=== PATIENT | female | born 1960 | race Caucasian/White ===

== ENCOUNTER 2022-09-06 21:21 | Inpatient (IN) | payer OTHER ==
[2022-09-06 22:54] LABS: Basophils % (A) 0 %; Eosinophils % (A) 0 %; HCT 46.8 % (34.0-46.0); HGB 15.7 gm/dL (11.4-16.0); Lymphocytes # (A) 0.6 k/uL (1.0-4.8); Lymphocytes % (A) 5 %; MCH 29.3 pg (25.0-35.0); MCHC 33.4 g/dL (31.0-37.0); MCV 87.5 fL (80.0-100.0); Mean Platelet Volume 8.1; Monocytes # (A) 0.8 k/uL (0-1.0); Monocytes % (A) 6 %; Neutrophils # (A) 11.6 k/uL (1.3-7.7); Neutrophils % (A) 89 %; Platelet Count 258 k/uL (150-450); RBC 5.35 m/uL (3.80-5.40)
[2022-09-06 23:08] LABS: ALT 25 U/L (4-34); AST 38 U/L (14-36); African American GFR (CKD) 47 (>60 ml/min/1.73 sqM); Albumin 4.3 g/dL (3.5-5.0); Alkaline Phosphatase 105 U/L (38-126); Anion Gap 12 mmol/L; Blood Urea Nitrogen 26 mg/dL (7-17); C Reactive Protein 3.5 mg/dL (<1.0); Calcium 8.6 mg/dL (8.4-10.2); Carbon Dioxide 28 mmol/L (22-30); Chloride 95 mmol/L (98-107); Glucose 203 mg/dL (74-99); Non-African American GFR(CKD) 41 (>60 ml/min/1.73 sqM); Sodium 135 mmol/L (137-145); Total Protein 7.9 g/dL (6.3-8.2)
--- NOTE | 2022-09-06 23:25 | ED ---
General Adult HPI - General Chief complaint: Abdominal Pain Stated complaint: Palpitations Time Seen by Provider: 09/06/22 21:44 Source: EMS Mode of arrival: EMS Limitations: no limitations - History of Present Illness Initial comments: This patient is 62-year-old woman who arrives here as a transfer from [facility]. The patient's had gone to the hospital there to have evaluation of periumbilical abdominal pain that she states have been going on for a couple of days. The patient on arrival also was feeling a little short of breath. The transfer paperwork notes that the patient was diagnosed with diverticulitis and with hypertensive crisis. She had pressures documented up to 267/167, shortly after her arrival there. The patient reportedly arrived around 3:30 PM and had highs blood pressure at 4:15 PM. The patient had been administered 10 mg of labetalol IV, 40 mg Lasix IV, and had been placed on the Nicardipine drip. Patient was also given dose of IV Zosyn and morphine for analgesia. Patient's blood pressure showed improvement and the nicardipine had been stopped. Labs from the other hospital revealed be BNP of 4840, blood cell count 13,000 950 creatinine 1.4. D-dimer 1.06 remainder of labs largely unremarkable. The ECG prior to transfer showed sinus tachycardia at 102 with evidence of LVH. Computed tomography scan of the abdomen shows "acute uncomplicated colonic diverticulitis and gallbladder wall thickening with cholelithiasis computed tomography scan of the chest showed no evidence of pulmonary embolism. On arrival here, the patient is complaining only of periumbilical abdominal pain. She denies chest pain or dyspnea. Onset/Timin -: days(s) Location: abdomen Radiation: non-radiation Quality: aching Consistency: constant Improves with: none Worsens with: movement Associated Symptoms: denies other symptoms Treatments Prior to Arrival: none - Related Data Previous Rx's Medication Instructions Recorded Amoxic-Pot Clav 875-125Mg 1 tab PO Q12HR 7 Days #14 tab 09/09/22 [Augmentin 875-125] Metoprolol Tartrate [Lopressor] 50 mg PO BID 60 Days #120 tab 09/09/22 amLODIPine [Norvasc] 10 mg PO DAILY 60 Days #60 tab 09/09/22 Allergies Allergy/AdvReac Type Severity Reaction Status Date / Time No Known Allergies Allergy Verified 09/07/22 07:33 Review of Systems ROS Statement: Those systems with pertinent positive or pertinent negative responses have been documented in the HPI. ROS Other: All systems not noted in ROS Statement are negative. Constitutional: Denies: fever, chills, weakness Respiratory: Denies: cough, dyspnea Cardiovascular: Denies: chest pain, palpitations, edema Gastrointestinal: Reports: abdominal pain, nausea. Denies: vomiting, diarrhea, constipation, melena, hematochezia Genitourinary: Denies: dysuria, hematuria Musculoskeletal: Denies: back pain Skin: Denies: rash Neurological: Denies: headache, weakness, numbness Past Medical History Past Medical History: Hypertension History of Any Multi-Drug Resistant Organisms: None Reported Past Surgical History: Tubal Ligation Smoking Status: Never smoker Past Alcohol Use History: None Reported Past Drug Use History: None Reported General Exam Limitations: no limitations General appearance: alert, in no apparent distress Head exam: Present: atraumatic, normocephalic Eye exam: Present: normal appearance. Absent: scleral icterus, conjunctival injection ENT exam: Present: normal oropharynx Neck exam: Present: normal inspection Respiratory exam: Present: normal lung sounds bilaterally. Absent: respiratory distress, wheezes, rales, rhonchi, stridor Cardiovascular Exam: Present: regular rate, normal rhythm, normal heart sounds. Absent: systolic murmur, diastolic murmur, rubs, gallop GI/Abdominal exam: Present: soft, tenderness. Absent: distended, guarding, rebound, rigid, mass, pulsatile mass, hernia Extremities exam: Present: normal inspection, normal capillary refill. Absent: pedal edema, calf tenderness Back exam: Present: normal inspection. Absent: CVA tenderness (R), CVA tenderness (L) Neurological exam: Present: alert Skin exam: Present: warm, dry, intact, normal color. Absent: rash Course Vital Signs 09/06/22 09/06/22 21:30 23:15 Temperature 97.8 F Pulse Rate 102 H 100 Respiratory 20 20 Rate Blood Pressure 146/99 153/108 O2 Sat by Pulse 96 96 Oximetry Medical Decision Making - Medical Decision Making This patient is a 62-year-old woman arriving here is transferred from outside hospital where she had gone to have evaluation of abdominal pain. The patient reportedly found to have diverticulitis. She while there also developed hypertensive episode requiring IV medication treatments. The patient states breathing has improved though she remains moderately hypertensive here. Patient will be admitted for further treatment Was pt. sent in by a medical professional or institution (, JEAN PAUL, [employer] BULK DRIVER, urgent care, hospital, or retirement...) When possible be specific @ -Patient transferred here from outside hospital Did you speak to anyone other than the patient for history (EMS, parent, family, police, friend...)? What history was obtained from this source @ -[No] Did you review nursing and triage notes (agree or disagree)? Why? @ -[I reviewed and agree with nursing and triage notes] Were old charts reviewed (outside hosp., previous admission, EMS record, old EKG, old radiological studies, urgent care reports/EKG's, retirement records)? Report findings @ -[Transfer records were reviewed] Differential Diagnosis (chest pain, altered mental status, abdominal pain women, abdominal pain men, vaginal bleeding, weakness, fever, dyspnea, syncope, headache, dizziness, GI bleed, back pain, seizure, CVA, palpatations, mental health, musculoskeletal)? @ -[Differential Abdominal Pain Women: Appendicitis, Cholecystitis, diverticulosis, ischemic bowel, pancreatitis, hepatitis, UTI, gastroenteritis, AAA, incarcerated hernia, bowel obstruction, constipation, inflammatory bowel, hepatitis, peptic ulcer disease, splenic infarction, perforated viscus, vulvitis, ovarian torsion, PID, kidney stone, placenta abruption, this is not meant to be an all-inclusive list Differential Dyspnea: Coronary syndrome, arrhythmia, tamponade, asthma, COPD, pulmonary embolism, pneumonia, pneumothorax, pulmonary effusion, anaphylaxis, diabetic ketoacidosis, flailed chest, pulmonary contusion, diaphragmatic rupture, anemia, neuromuscular, this is not meant to be an all-inclusive list. EKG interpreted by me (3pts min.). @ -[As above] X-rays interpreted by me (1pt min.). @ -[None done] CT interpreted by me (1pt min.). @ -[None done] U/S interpreted by me (1pt. min.). @ -[None done] What testing was considered but not performed or refused? (CT, X-rays, U/S, labs)? Why? @ -[None] What meds were considered but not given or refused? Why? @ -[None] Did you discuss the management of the patient with other professionals (professionals i.e. , PA, [employer] BULK DRIVER, lab, RT, psych nurse, elementary school social worker, locket maker, teacher, second officer, pillowcase cleaner)? Give summary @ -[Case discussed with the admitting physician Was smoking cessation discussed for >3mins.? @ -[No] Was critical care preformed (if so, how long)? @ -[No] Were there social determinants of health that impacted care today? How? (Homelessness, low income, unemployed, alcoholism, drug addiction, transportation, low edu. Level, literacy, decrease access to med. care, detention, rehab)? @ -[No] Was there de-escalation of care discussed even if they declined (Discuss DNR or withdrawal of care, Hospice)? DNR status @ -[No] What co-morbidities impacted this encounter? (DM, HTN, Smoking, COPD, CAD, Cancer, CVA, ARF, Chemo, Hep., AIDS, mental health diagnosis, sleep apnea, mo rbid obesity)? @ -[None] Was patient admitted / discharged? Hospital course, mention meds given and route, prescriptions, significant lab abnormalities, going to OR and other pertinent info. @ -[The patient is admitted, she'll have further diverticulitis treatment as well as further evaluation related to the hypertensive urgency Undiagnosed new problem with uncertain prognosis? @ -[No] Drug Therapy requiring intensive monitoring for toxicity (Heparin, Nitro, Insulin, Cardizem)? @ -[No] Were any procedures done? @ -[No] Diagnosis/symptom? @ -[Acute diverticulitis Hypertensive urgency with congestive heart failure Acute, or Chronic, or Acute on Chronic? @ -[default] Uncomplicated (without systemic symptoms) or Complicated (systemic symptoms)? @ -[Uncomplicated Side effects of treatment? @ -[No] Exacerbation, Progression, or Severe Exacerbation? @ -[No] Poses a threat to life or bodily function? How? (Chest pain, USA, ME, pneumonia, PE, COPD, DKA, ARF, appy, cholecystitis, CVA, Diverticulitis, Homicidal, Eula cidal, threat to staff... and all critical care pts) @ -[Yes untreated hypertensive emergency can progress to respiratory failure and - Lab Data Result diagrams: 09/09/22 05:53 09/09/22 05:53 Lab Results 09/06/22 09/06/22 09/06/22 Range/Units 22:38 22:38 22:38 WBC 13.0 H (3.8-10.6) k/uL RBC 5.35 (3.80-5.40) m/uL Hgb 15.7 (11.4-16.0) gm/dL Hct 46.8 H (34.0-46.0) % MCV 87.5 (80.0-100.0) fL MCH 29.3 (25.0-35.0) pg MCHC 33.4 (31.0-37.0) g/dL RDW 13.0 (11.5-15.5) % Plt Count 258 (150-450) k/uL MPV 8.1 Neutrophils % 89 % Lymphocytes % 5 % Monocytes % 6 % Eosinophils % 0 % Basophils % 0 % Neutrophils # 11.6 H (1.3-7.7) k/uL Lymphocytes # 0.6 L (1.0-4.8) k/uL Monocytes # 0.8 (0-1.0) k/uL Eosinophils # 0.0 (0-0.7) k/uL Basophils # 0.0 (0-0.2) k/uL Sodium 135 L (137-145) mmol/L Potassium 4.0 (3.5-5.1) mmol/L Chloride 95 L (98-107) mmol/L Carbon Dioxide 28 (22-30) mmol/L Anion Gap 12 mmol/L BUN 26 H (7-17) mg/dL Creatinine 1.38 H (0.52-1.04) mg/dL Est GFR (CKD-EPI)AfAm 47 (>60 ml/min/1.73 sqM) Est GFR (CKD-EPI)NonAf 41 (>60 ml/min/1.73 sqM) Glucose 203 H (74-99) mg/dL Calcium 8.6 (8.4-10.2) mg/dL Total Bilirubin 1.0 (0.2-1.3) mg/dL AST 38 H (14-36) U/L ALT 25 (4-34) U/L Alkaline Phosphatase 105 (38-126) U/L Troponin I <0.012 (0.000-0.034) ng/mL C-Reactive Protein 3.5 H (<1.0) mg/dL Total Protein 7.9 (6.3-8.2) g/dL Albumin 4.3 (3.5-5.0) g/dL - EKG Data EKG shows normal: sinus rhythm, axis (Normal), intervals (Normal), QRS complexes (Possible old anterior ME) Rate: normal (Rate 99 bpm), bradycardia (Rate in the 50s.) Interpretation: LVH Disposition Clinical Impression: Diverticulitis, Hypertension Disposition: ADMITTED IP TO THIS HOSP Condition: Stable Is patient prescribed a controlled substance at d/c from ED?: No
[2022-09-06] MEDS ORDERED: MAG HYDROX/AL HYDROX/SIMETH 30 ML CUP PO PRN (23:26)
[2022-09-06] MEDS ORDERED: ONDANSETRON 4 MG/2 ML VIAL IVP PRN (23:26)
[2022-09-06] MEDS ORDERED: NALOXONE 0.4 MG/ML 1 ML VIAL IV PRN (23:26)
[2022-09-06] MEDS ORDERED: DEXTROSE 50% SYRINGE 50 ML IVP PRN ×2 (23:30)
[2022-09-06] MEDS: SODIUM CHLORIDE 0.9% 1,000 ML IV SCH (23:38)
[2022-09-07] MEDS ORDERED: ACETAMINOPHEN TAB 325 MG TAB PO PRN (02:04)
--- NOTE | 2022-09-07 02:07 | P.HPIM ---
History of Present Illness H&P Date: 09/07/22 Chief Complaint: Abdominal pain 62-year-old female no significant past medical history She is transferred from [facility] to our facility for further evaluation and treatment of acute diverticulitis. She reports severe left lower quadrant abdominal pain and suprapubic abdominal pain for about a week now worse today for which she decided to go to the hospital for evaluation associated with repeated nausea but no vomiting no diarrhea she denies any GI bleeding reports some chills but no fever she feels tired and weak not tolerating by mouth intake. Pain is colicky off-and-on mainly in the lower abdomen left lower quadrant she denies any history of kidney stones denies any history of diverticulitis denies any diarrhea. Imaging with CAT scan confirmed acute diverticulitis. She denies any tobacco smoking illicit drugs or alcohol Review of Systems Pertinent positives as noted in HPI. All other systems were reviewed and are neg ative Past Medical History Past Medical History: Hypertension History of Any Multi-Drug Resistant Organisms: None Reported Past Surgical History: Tubal Ligation Smoking Status: Never smoker Past Alcohol Use History: None Reported Past Drug Use History: None Reported Medications and Allergies Allergies Allergy/AdvReac Type Severity Reaction Status Date / Time No Known Allergies Allergy Verified 09/06/22 23:34 Physical Exam Vitals: Vital Signs Temp Pulse Pulse Resp BP BP Pulse Ox 09/07/22 01:49 98 F 98 18 153/105 96 09/07/22 01:08 92 22 162/110 96 09/06/22 23:15 100 20 153/108 96 09/06/22 21:30 97.8 F 102 H 20 146/99 96 Intake and Output 09/06/22 09/06/22 09/07/22 14:59 22:59 06:59 Other: Weight 81.647 kg 81.647 kg Pertinent positives as noted in HPI. All other systems were reviewed and are negative Constitutional: No acute distress, conversant, pleasant Eyes: Anicteric sclerae, moist conjunctiva, Pupils equal round reactive to light ENMT: NC/AT Oropharynx clear, no erythema, or exudates Neck: Supple, no masses, or JVD No carotid bruits No thyromegaly Lungs: Clear to auscultation Clear to percussion Normal respiratory effort, no accessory muscle use Cardiovascular: Heart regular in rate and rhythm, No murmurs, gallops, or rubs No peripheral edema Abdominal: Soft Nontender, no guarding, rebound or rigidity Abdomen moving with respiration Normoactive bowel sounds No hepatomegaly, No splenomegaly No palpable mass No abdominal wall hernia noted Skin: Normal temperature, tone, texture, turgor No induration No subcutaneous nodules No rash, lesions No ulcers Extremities: No digital cyanosis No clubbing Pedal pulses intact and symmetrical Radial pulses intact and symmetrical No calf tenderness Psychiatric: Alert and oriented to person, place and time Appropriate affect fair judgement Neuro Muscles Strength 5/5 in all 4 extremities Sensation to light touch grossly present throughout Cranial nerves II-XII grossly intact Lymphatics: no palpable cervical or supraclavicular lymph nodes Results CBC & Chem 7: 09/06/22 22:38 09/06/22 22:38 Labs: Abnormal Lab Results - Last 24 Hours (Table) 09/06/22 09/06/22 Range/Units 22:38 22:38 WBC 13.0 H (3.8-10.6) k/uL Hct 46.8 H (34.0-46.0) % Neutrophils # 11.6 H (1.3-7.7) k/uL Lymphocytes # 0.6 L (1.0-4.8) k/uL Sodium 135 L (137-145) mmol/L Chloride 95 L (98-107) mmol/L BUN 26 H (7-17) mg/dL Creatinine 1.38 H (0.52-1.04) mg/dL Glucose 203 H (74-99) mg/dL AST 38 H (14-36) U/L C-Reactive Protein 3.5 H (<1.0) mg/dL Thrombosis Risk Factor Assmnt - Choose All That Apply Any of the Below Risk Factors Present?: Yes Each Factor Represents 1 point: Obesity (BMI >25) Other Risk Factors: Yes Each Risk Factor Represents 2 Points: Age 61-74 years Other congenital or acquired thrombophilia - If yes, enter type in comment: No Thrombosis Risk Factor Assessment Total Risk Factor Score: 3 Thrombosis Risk Factor Assessment Level: Moderate Risk Assessment and Plan Assessment: 62-year-old female no significant past medical history comes in for lower ab dominal pain I discussed the case with the ED doctor patient diagnosed with acute diverticulitis psych subjective admission for IV antibiotics and surgical evaluation with anticipated length of stay more than 2 midnights Acute diverticulitis Nothing by mouth IV fluid hydration with normal saline continue normal saline at 75 mL per hour Up cultures Zosyn 3.78 times every 8 hours Zofran for nausea vomiting Morphine for pain control Nothing by mouth Blood work reviewed white count is 13, Hemoglobin 15.7 unremarkable Renal function sodium 135 potassium 4 Acute kidney injury BUN elevated at 26 and creatinine 1.38 Avoid toxic meds With hydration with saline Follow-up urine output and renal function Full code DVT prophylaxis heparin subcu 3 times a day
[2022-09-07 02:38] LABS: Appearance,Urine Clear (Clear); Bacteria,Urine Rare /hpf; Bilirubin,Urine Negative (Negative); Blood,Urine Small (Negative); Color,Urine Colorless; Glucose,Urine (UA) 2+ (Negative); Ketones,Urine Negative (Negative); Leukocyte Esterase,Urine Negative (Negative); Mucus,Urine Rare /hpf; Nitrite,Urine Negative (Negative); Protein,Urine Negative (Negative); RBC,Urine 25 /hpf (0-5); Specific Gravity,Urine 1.024 (1.001-1.035); Squamous Epithelial Cell,Urine <1 /hpf (0-4); Urobilinogen,Urine <2.0 mg/dL (<2.0); WBC,Urine 1 /hpf (0-5)
[2022-09-07] MEDS: PIPERACILLIN-TAZOBACTAM 3.375 GM in SODIUM CHLORIDE 0.9% 100 ML IVPB SCH ×3 (02:56→18:38)
[2022-09-07] MEDS: MORPHINE SULFATE 4 MG/ML SYRINGE IV PRN ×4 (04:17→22:38)
[2022-09-07 05:42] LABS: Glucose,Whole Blood 152 mg/dL (70-110)
[2022-09-07] MEDS: INSULIN ASPART (NovoLOG) 100 UNIT/ML VIAL SQ SCH ×4 (05:55→22:38)
[2022-09-07] MEDS: PANTOPRAZOLE 40 MG/10 ML VIAL IV SCH (08:39)
[2022-09-07] MEDS: METOPROLOL TARTRATE 25 MG TAB PO SCH ×2 (08:39→22:37)
[2022-09-07] MEDS: HEPARIN SODIUM,PORCINE/PF 5,000 UNIT/0.5 ML SYRINGE SQ SCH ×3 (08:40→22:37)
[2022-09-07 10:36] LABS: Basophils % (A) 0 %; Eosinophils # (A) 0.1 k/uL (0-0.7); Eosinophils % (A) 1 %; HCT 43.1 % (34.0-46.0); HGB 13.8 gm/dL (11.4-16.0); Lymphocytes # (A) 0.9 k/uL (1.0-4.8); Lymphocytes % (A) 8 %; MCH 27.8 pg (25.0-35.0); MCV 86.8 fL (80.0-100.0); Mean Platelet Volume 8.4; Monocytes # (A) 0.7 k/uL (0-1.0); Monocytes % (A) 6 %; Neutrophils # (A) 9.5 k/uL (1.3-7.7); Neutrophils % (A) 84 %; Platelet Count 240 k/uL (150-450); RBC 4.97 m/uL (3.80-5.40); RDW 13.2 % (11.5-15.5); WBC 11.3 k/uL (3.8-10.6)
[2022-09-07 12:05] LABS: Glucose,Whole Blood 138 mg/dL (70-110)
--- NOTE | 2022-09-07 16:00 | P.GSCN ---
History of Present Illness Consult date: 09/07/22 History of present illness: CHIEF COMPLAINT: Abdominal pain HISTORY OF PRESENT ILLNESS: This is a 62-year-old female who was a transfer from [facility]. Patient presented to the hospital with complaints of abdominal pain that started last Wednesday. Her pain is more in the liver center suprapubic area. She does have a known history of diverticulosis. She has never needed antibiotics for diverticulitis however she's had similar pain in the past that has improved with bowel rest. She admits to having nausea and vomiting initially that has now resolved. Blood pressures also been elevated. She had evidence of hypertensive crisis on admission. Blood pressures improving. Patient reports that her pain has improved greatly. Initially pain was 10 out of 10 and is now down to 5 out of 10. She is having bowel movements. Denies any blood in her stools. Last colonoscopy was 10 years ago revealing diverticulosis. Her computed tomography scan at [place] had showed acute uncomplicated colonic diverticulitis and gallbladder wall thickening with cholel ithiasis. CT of the chest that showed no evidence of PE. Patient started on IV antibiotics and has essentially been nothing by mouth. Surgical service consulted in regards to diverticulitis PAST MEDICAL HISTORY: See list. PAST SURGICAL HISTORY: See list. MEDICATIONS: See list. ALLERGIES: See list. SOCIAL HISTORY: No illicit drug use. REVIEW OF SYSTEMS: CONSTITUTIONAL: Denies fever or chills. HEENT: Denies blurred vision, vision changes, or eye pain. Denies hemoptysis ENDOCRINE: Denies heat or cold intolerance. CARDIOVASCULAR: Denies chest pain or pressure. RESPIRATORY: No shortness of breath. GASTROINTESTINAL: Please refer to HPI NEURO: Denies history of seizures. PSYCH: No depression or suicidal ideation HEMATOLOGIC: Denies bleeding disorders. LYMPHATIC: The patient denies any lumps and bumps around the neck. GENITOURINARY: Denies any blood in urine or increased urinary frequency. MUSCULOSKELETAL: Denies myalgias. Denies joint swelling. Denies decreased range of motion beyond patients baseline. SKIN: Denies pruitis. Denies rash. PHYSICAL EXAM: VITAL SIGNS: Reviewed GENERAL: Well-developed in no acute distress. HEENT: No sclera icterus. Extraocular movements grossly intact. Moist buccal mucosa. Head is atraumatic, normocephalic. Hears conversational speech. No nasal drainage. NECK: Supple without lymphadenopathy. CHEST: Non-labored respirations and equal bilateral excursions. CARDIOVASCULAR: Palpable 2+ radial pulses. ABDOMEN: Soft. Nondistended. Mild discomfort with palpation suprapubic area MUSCULOSKELETAL: No clubbing or cyanosis. NEUROLOGIC: No focal or lateralizing signs. Cranial nerves II through XII grossly intact. PSYCH: Appropriate affect. Alert and oriented to person, place and time. SKIN: Well perfused. Good skin turgor. LABORATORY DATA: WBC 13 down to 11.3 Hgb 13.8 plt 240 sodium 135 potassium is 4.0 creatinine is 1.38 lactic acid 0.8 AST 38 ALT 25 total bilirubin 1.0 alk phos 105 Urinalysis no evidence of infection IMAGING: Computed tomography scan findings as stated above ASSESSMENT: 1. Acute uncomplicated diverticulitis 2. Gallbladder wall thickening with cholelithiasis noted on computed tomography scan. Patient denies any right upper quadrant abdominal pain 3. Hypertension with uncontrolled blood pressure PLAN: -Continue IV antibiotics -Advance diet to clear liquids -Continue to monitor -Continue supportive care Physician Global Account Director note has been reviewed by physician. Signing provider agrees with the documented findings, assessment, and plan of care. Past Medical History Past Medical History: Hypertension History of Any Multi-Drug Resistant Organisms: None Reported Past Surgical History: Tubal Ligation Smoking Status: Never smoker Past Alcohol Use History: None Reported Past Drug Use History: None Reported Medications and Allergies Home Medications Medication Instructions Recorded Confirmed Type No Known Home Medications 09/07/22 09/07/22 History Allergies Allergy/AdvReac Type Severity Reaction Status Date / Time No Known Allergies Allergy Verified 09/07/22 07:33 Surgical - Exam Vital Signs Temp Pulse Resp BP Pulse Ox 97.8 F 102 H 20 146/99 96 09/06/22 21:30 09/06/22 21:30 09/06/22 21:30 09/06/22 21:30 09/06/22 21:30 Results - Labs 09/07/22 10:01 09/06/22 22:38 Abnormal Lab Results - Last 24 Hours (Table) 09/06/22 09/06/22 09/07/22 Range/Units 22:38 22:38 01:35 WBC 13.0 H (3.8-10.6) k/uL Hct 46.8 H (34.0-46.0) % Neutrophils # 11.6 H (1.3-7.7) k/uL Lymphocytes # 0.6 L (1.0-4.8) k/uL Sodium 135 L (137-145) mmol/L Chloride 95 L (98-107) mmol/L BUN 26 H (7-17) mg/dL Creatinine 1.38 H (0.52-1.04) mg/dL Glucose 203 H (74-99) mg/dL POC Glucose (mg/dL) (70-110) mg/dL AST 38 H (14-36) U/L C-Reactive Protein 3.5 H (<1.0) mg/dL Urine Glucose (UA) 2+ H (Negative) Urine Blood Small H (Negative) Urine RBC 25 H (0-5) /hpf Urine Bacteria Rare H (None) /hpf Urine Mucus Rare H (None) /hpf 09/07/22 Range/Units 05:41 WBC (3.8-10.6) k/uL Hct (34.0-46.0) % Neutrophils # (1.3-7.7) k/uL Lymphocytes # (1.0-4.8) k/uL Sodium (137-145) mmol/L Chloride (98-107) mmol/L BUN (7-17) mg/dL Creatinine (0.52-1.04) mg/dL Glucose (74-99) mg/dL POC Glucose (mg/dL) 152 H (70-110) mg/dL AST (14-36) U/L C-Reactive Protein (<1.0) mg/dL Urine Glucose (UA) (Negative) Urine Blood (Negative) Urine RBC (0-5) /hpf Urine Bacteria (None) /hpf Urine Mucus (None) /hpf Diabetes panel 09/06/22 09/07/22 Range/Units 22:38 04:28 Sodium 135 L (137-145) mmol/L Potassium 4.0 (3.5-5.1) mmol/L Chloride 95 L (98-107) mmol/L Carbon Dioxide 28 (22-30) mmol/L BUN 26 H (7-17) mg/dL Creatinine 1.38 H (0.52-1.04) mg/dL Glucose 203 H (74-99) mg/dL Hemoglobin A1c 6.0 (<=6.0) % Calcium 8.6 (8.4-10.2) mg/dL AST 38 H (14-36) U/L ALT 25 (4-34) U/L Alkaline Phosphatase 105 (38-126) U/L Total Protein 7.9 (6.3-8.2) g/dL Albumin 4.3 (3.5-5.0) g/dL Calcium panel 09/06/22 Range/Units 22:38 Calcium 8.6 (8.4-10.2) mg/dL Albumin 4.3 (3.5-5.0) g/dL Pituitary panel 09/06/22 Range/Units 22:38 Sodium 135 L (137-145) mmol/L Potassium 4.0 (3.5-5.1) mmol/L Chloride 95 L (98-107) mmol/L Carbon Dioxide 28 (22-30) mmol/L BUN 26 H (7-17) mg/dL Creatinine 1.38 H (0.52-1.04) mg/dL Glucose 203 H (74-99) mg/dL Calcium 8.6 (8.4-10.2) mg/dL Adrenal panel 09/06/22 Range/Units 22:38 Sodium 135 L (137-145) mmol/L Potassium 4.0 (3.5-5.1) mmol/L Chloride 95 L (98-107) mmol/L Carbon Dioxide 28 (22-30) mmol/L BUN 26 H (7-17) mg/dL Creatinine 1.38 H (0.52-1.04) mg/dL Glucose 203 H (74-99) mg/dL Calcium 8.6 (8.4-10.2) mg/dL Total Bilirubin 1.0 (0.2-1.3) mg/dL AST 38 H (14-36) U/L ALT 25 (4-34) U/L Alkaline Phosphatase 105 (38-126) U/L Total Protein 7.9 (6.3-8.2) g/dL Albumin 4.3 (3.5-5.0) g/dL
[2022-09-07] MEDS: amLODIPine 10 MG TAB PO SCH (16:46)
--- NOTE | 2022-09-07 17:07 | P.PN ---
Subjective Progress Note Date: 09/07/22 Hospital course: Patient is a very pleasant 62-year-old female with a past medical history of hypertension. She was transferred to our facility from [facility] secondary to CT findings of acute diverticulitis. Patient reported she initially presented to [facility] secondary to reports of left lower quadrant abdominal pain and suprapubic abdominal discomfort lasting for approximately 1 week and worsening today. She denied any episodes of nausea, vomiting, or diarrhea. Upon arrival to our facility patient underwent further evaluation. Vital signs reviewed and stable with blood pressure 146/99, heart rate 102, respiratory rate 20, SpO2 96% on room air and temperature 97.8F. Labs completed and reviewed. CBC consistent with leukocytosis with WBC count of 13.0. BMP showing an acute kidney injury with BUN 26, creatinine 1.38, and GFR of 41 along with hyperglycemia with glucose of 203. Lactate 0.8. Liver profile showing elevated AST of 38. CRP elevated at 3.5 and troponin of less than 0.012. Urinalysis positive for glucose, ketones, and 25 RBCs negative for infection. EKG completed showing normal sinus rhythm and 99 bpm with left ventricular hypertrophy and T-wave inversion in inferior leads III, and aVF upon personal review and interpretation. Patient was admitted under services for acute diverticulitis and started on IV antibiotics with Zosyn. General surgery has been consulted. Physical exam: Patient seen and fully evaluated at bedside this morning. Patient reports epigastric tenderness/pain and feeling of bloating. She denies having any nausea or vomiting, denies passing flatus, denies diarrhea, melena, or hematochezia. Patient reports last bowel movement was 09/06/22 and states was soft, formed, and normal. General: Nontoxic, no distress and appears stated age. Derm: Skin warm and dry, normal coloration for ethnicity. Head: Atraumatic, normocephalic and symmetric. Chronic lump on scalp Eyes: EOMs intact, no lid lag, and anicteric sclera Mouth: no lip lesions, mucus membranes moist Cardiovascular: regular rate and rhythm with normal S1S2, no murmur, positive posterior tibial pulses bilaterally, and cap refill < 2 seconds. Lungs: Respirations even, regular, and unlabored on room air. Lungs CTA bilaterally, no rhonchi, no rales, no wheezing, and no accessory muscle usage. GI/: soft, epigastric tenderness upon palpation, no guarding, no appreciable organomegaly. Longo catheter in place. Ext: ROM intact. No gross muscle atrophy, no edema, no contractures Neuro: Speech clear, face symmetrical and CN II-XII grossly intact with no noted focal neuro deficits Psych: Alert and oriented to person, place, time, and situation. Appropriate and pleasant affect. Assessment and Plan of Care: Acute diverticulitis Sepsis secondary to above Leukocytosis, secondary to above -Gen. surgery following, discussed plan of care with general surgery PA recommending continuation of conservative medical management with IV antibiotics and clear liquid diet. -Clear liquid diet, advance as recommended per Gen. surgery team. -IV antibiotics with Zosyn 3.375 g every 8 hours. -Symptomatic care and pain management. -GI prophylaxis with Protonix 40 mg IVP daily. Hypertensive urgency EKG findings of left ventricular hypertrophy -Patient reports long-standing history of hypertension previously on medication no longer taking secondary to loss of insurance and inability to afford prescriptions. -Systolic pressures have been elevated 140s to 200s with diastolic pressures 90s to 110s. -Patient started on amlodipine 10 mg daily. -Echocardiogram ordered, may consult cardiology pending results. Hyperglycemia -Hemoglobin A1c 6%. -Patient placed on glycemic protocol with NovoLog sliding scale to maintain tight glycemic control throughout hospitalization. -Patient may benefit from being started on Glucophage 500 mg twice a day upon discharge and encouraged to make dietary and lifestyle changes for goal hemoglobin A1c less than 6%. Urinary retention -Longo catheter placed at [facility] secondary to reports of urinary retention. -Urinalysis positive for glucose, ketones, and 25 RBCs negative for infection. Data reviewed: -Labs completed and reviewed. CBC consistent with leukocytosis with WBC count of 13.0. BMP showing an acute kidney injury with BUN 26, creatinine 1.38, and GFR of 41 along with hyperglycemia with glucose of 203. Lactate 0.8. Liver profile showing elevated AST of 38. CRP elevated at 3.5 and troponin of less than 0.012. Urinalysis positive for glucose, ketones, and 25 RBCs negative for infection. -EKG completed showing normal sinus rhythm and 99 bpm with left ventricular hypertrophy and T-wave inversion in inferior leads III, and aVF upon personal review and interpretation Imaging reviewed -No new imaging to review at this time. -Ordered with echocardiogram. CODE STATUS: Full code DVT prophylaxis: Heparin Discussed with: Patient, Gen. surgery PA, and RN Anticipated discharge date: Clinical course to determine Anticipated discharge place: Home Patient was seen independently by Nurse Pracitioner. This document was prepared using [employer] dictation software. Please allow for errors in environmental control administrator, while rare they do occur. I reviewed the documentation as provided by the CHRISTY above, who is the original author of this note. I agree with the documented assessment and plan, with the following changes: none Objective - Vital Signs Vital signs: Vital Signs Temp 98.1 F 09/07/22 07:00 Pulse 86 09/07/22 07:00 Resp 20 09/07/22 07:00 BP 145/92 09/07/22 07:00 Pulse Ox 97 09/07/22 07:00 FiO2 Intake & Output 09/06/22 09/07/22 09/07/22 18:59 06:59 18:59 Output Total 400 Balance -400 Weight 81.647 kg Output: Urine 400 - Labs CBC & Chem 7: 09/07/22 10:01 09/06/22 22:38 Labs: Abnormal Lab Results - Last 24 Hours (Table) 09/06/22 09/06/22 09/07/22 Range/Units 22:38 22:38 01:35 WBC 13.0 H (3.8-10.6) k/uL Hct 46.8 H (34.0-46.0) % Neutrophils # 11.6 H (1.3-7.7) k/uL Lymphocytes # 0.6 L (1.0-4.8) k/uL Sodium 135 L (137-145) mmol/L Chloride 95 L (98-107) mmol/L BUN 26 H (7-17) mg/dL Creatinine 1.38 H (0.52-1.04) mg/dL Glucose 203 H (74-99) mg/dL POC Glucose (mg/dL) (70-110) mg/dL AST 38 H (14-36) U/L C-Reactive Protein 3.5 H (<1.0) mg/dL Urine Glucose (UA) 2+ H (Negative) Urine Blood Small H (Negative) Urine RBC 25 H (0-5) /hpf Urine Bacteria Rare H (None) /hpf Urine Mucus Rare H (None) /hpf 06/26/23 Range/Units 05:41 WBC (3.8-10.6) k/uL Hct (34.0-46.0) % Neutrophils # (1.3-7.7) k/uL Lymphocytes # (1.0-4.8) k/uL Sodium (137-145) mmol/L Chloride (98-107) mmol/L BUN (7-17) mg/dL Creatinine (0.52-1.04) mg/dL Glucose (74-99) mg/dL POC Glucose (mg/dL) 152 H (70-110) mg/dL AST (14-36) U/L C-Reactive Protein (<1.0) mg/dL Urine Glucose (UA) (Negative) Urine Blood (Negative) Urine RBC (0-5) /hpf Urine Bacteria (None) /hpf Urine Mucus (None) /hpf
[2022-09-07 17:14] LABS: Glucose,Whole Blood 131 mg/dL (70-110)
[2022-09-07] MEDS: SODIUM CHLORIDE 0.9% 1,000 ML IV SCH (18:10)
--- NOTE | 2022-09-07 20:15 | US ---
EXAMINATION TYPE: US kidneys/renal and bladder DATE OF EXAM: 09/07/2022 COMPARISON: NONE CLINICAL INDICATION: Female, 62 years old with history of urinary retention, JOHNNY; urinary retention EXAM MEASUREMENTS: Right Kidney: 10.1 x 5.2 x 5.2 cm Left Kidney: 10.9 x 5.4 x 4.9 cm Right Kidney: No hydronephrosis or masses seen Left Kidney: No hydronephrosis or masses seen Bladder: Limited due to rodriguez Bilateral Jets seen: No There is no evidence for hydronephrosis at this point in time. No nephrolithiasis is seen. No vega s are identified. IMPRESSION: No discrete abnormality seen.
[2022-09-07 20:29] LABS: Glucose,Whole Blood 180 mg/dL (70-110)
[2022-09-08] MEDS: PIPERACILLIN-TAZOBACTAM 3.375 GM in SODIUM CHLORIDE 0.9% 100 ML IVPB SCH ×3 (02:25→18:39)
[2022-09-08 06:19] LABS: ALT 43 U/L (4-34); AST 39 U/L (14-36); African American GFR (CKD) 49 (>60 ml/min/1.73 sqM); Albumin 3.6 g/dL (3.5-5.0); Albumin/Globulin Ratio 1.1; Alkaline Phosphatase 107 U/L (38-126); Anion Gap 7 mmol/L; Blood Urea Nitrogen 25 mg/dL (7-17); Calcium 8.6 mg/dL (8.4-10.2); Carbon Dioxide 26 mmol/L (22-30); Chloride 98 mmol/L (98-107); Globulin 3.2 g/dL; Glucose 138 mg/dL (74-99); Magnesium 1.9 mg/dL (1.6-2.3); Non-African American GFR(CKD) 43 (>60 ml/min/1.73 sqM); Sodium 131 mmol/L (137-145); Total Bilirubin 1.3 mg/dL (0.2-1.3); Total Protein 6.8 g/dL (6.3-8.2)
[2022-09-08 06:20] LABS: Potassium 4.2 mmol/L (3.5-5.1)
[2022-09-08 06:23] LABS: Glucose,Whole Blood 136 mg/dL (70-110)
[2022-09-08] MEDS: INSULIN ASPART (NovoLOG) 100 UNIT/ML VIAL SQ SCH ×4 (06:30→20:27)
[2022-09-08 07:45] VITALS: RESP 16
[2022-09-08 08:47] LABS: Basophils # (A) 0.05 X 10*3/uL (0.00-0.10); Basophils % (A) 0.4 %; Eosinophils # (A) 0.06 X 10*3/uL (0.04-0.35); Eosinophils % (A) 0.4 %; HCT 44.9 % (37.2-46.3); HGB 13.9 d/dL (12.0-15.0); Lymphocytes # (A) 0.97 X 10*3/uL (0.90-5.00); Lymphocytes % (A) 7.1 %; MCH 28.2 pg (27.0-32.0); MCV 91.1 FL (80.0-97.0); Mean Platelet Volume 11.4 FL (9.5-12.2); Monocytes # (A) 1.27 X 10*3/uL (0.20-1.00); Monocytes % (A) 9.3 %; NRBC Per 100 WBC 0 X 10*3/uL (0.00-0.01); Neutrophils # (A) 11.33 X 10*3/uL (1.80-7.70); Neutrophils % (A) 82.5 %; Platelet Count 211 X 10*3/uL (140-440); RBC 4.93 X 10*6/uL (4.10-5.20); WBC 13.72 X 10*3/uL (4.50-10.00)
[2022-09-08] MEDS: HEPARIN SODIUM,PORCINE/PF 5,000 UNIT/0.5 ML SYRINGE SQ SCH ×2 (09:36→17:20)
[2022-09-08] MEDS: amLODIPine 10 MG TAB PO SCH (09:36)
[2022-09-08] MEDS: METOPROLOL TARTRATE 25 MG TAB PO SCH (09:36)
[2022-09-08] MEDS: PANTOPRAZOLE 40 MG/10 ML VIAL IV SCH (09:37)
[2022-09-08 12:23] LABS: Glucose,Whole Blood 120 mg/dL (70-110)
--- NOTE | 2022-09-08 12:27 | P.PN ---
Subjective Progress Note Date: 09/08/22 CHIEF COMPLAINT: Acute diverticulitis HISTORY OF PRESENT ILLNESS: Patient reports her pain has improved. She rates her pain at a 0. She denies any nausea or vomiting. She is still having issues with elevated blood pressure. Medicine service is following. She scheduled to have a Longo catheter removed. She is tolerating clear liquid diet. Her white count did increase from 11-13.72 Hgb 13.9 platelets 211 symptoms 131 potassium 4.2 creatinine 1.33 AST 39 ALT 43 PHYSICAL EXAM: VITAL SIGNS: Reviewed GENERAL: Well-developed in no acute distress. HEENT: No sclera icterus. Extraocular movements grossly intact. Moist buccal mucosa. Head is atraumatic, normocephalic. Hears conversational speech. No nasal drainage. NECK: Supple without lymphadenopathy. CHEST: Non-labored respirations and equal bilateral excursions. CARDIOVASCULAR: Palpable 2+ radial pulses. ABDOMEN: Soft. Nondistended. Nontender. MUSCULOSKELETAL: No clubbing or cyanosis. NEUROLOGIC: No focal or lateralizing signs. Cranial nerves II through XII grossly intact. PSYCH: Appropriate affect. Alert and oriented to person, place and time. SKIN: Well perfused. Good skin turgor. ASSESSMENT: 1. Acute uncomplicated diverticulitis 2. Gallbladder wall thickening with cholelithiasis noted on computed tomography scan. Patient denies any right upper quadrant abdominal pain 3. Hypertension with uncontrolled blood pressure 4. Mildly elevated LFTs PLAN: -Advance diet to full liquids -Continue antibiotics. Antibiotics may need to be adjusted due to increase in white count -Continue pain management -Encouraged patient to increase activity level -Repeat CBC and LFTs in a.m. Physician Design Drafter note has been reviewed by physician. Signing provider agrees with the documented findings, assessment, and plan of care. Objective - Vital Signs Vital signs: Vital Signs Temp 99.4 F 09/08/22 07:29 Pulse 76 09/08/22 10:51 Resp 16 09/08/22 09:20 BP 155/91 09/08/22 10:51 Pulse Ox 94 L 09/08/22 07:29 FiO2 Intake & Output 09/07/22 09/08/22 09/08/22 18:59 06:59 18:59 Intake Total 240 Output Total 500 200 Balance 240 -500 -200 Intake: Oral 240 Output: Urine 500 200 Other: Voiding Method Indwelling Catheter # Voids 1 2 - Labs CBC & Chem 7: 09/08/22 05:27 09/08/22 05:27 Labs: Abnormal Lab Results - Last 24 Hours (Table) 09/07/22 09/07/22 09/07/22 Range/Units 12:01 17:11 20:27 WBC (4.50-10.00) X 10*3/uL MCHC (32.0-37.0) d/dL Neutrophils # (1.80-7.70) X 10*3/uL Monocytes # (0.20-1.00) X 10*3/uL Sodium (137-145) mmol/L BUN (7-17) mg/dL Creatinine (0.52-1.04) mg/dL Glucose (74-99) mg/dL POC Glucose (mg/dL) 138 H 131 H 180 H (70-110) mg/dL AST (14-36) U/L ALT (4-34) U/L 09/08/22 09/08/22 09/08/22 Range/Units 05:27 05:27 06:22 WBC 13.72 H (4.50-10.00) X 10*3/uL MCHC 31.0 L (32.0-37.0) d/dL Neutrophils # 11.33 H (1.80-7.70) X 10*3/uL Monocytes # 1.27 H (0.20-1.00) X 10*3/uL Sodium 131 L (137-145) mmol/L BUN 25 H (7-17) mg/dL Creatinine 1.33 H (0.52-1.04) mg/dL Glucose 138 H (74-99) mg/dL POC Glucose (mg/dL) 136 H (70-110) mg/dL AST 39 H (14-36) U/L ALT 43 H (4-34) U/L
--- NOTE | 2022-09-08 14:06 | P.PN ---
Subjective Progress Note Date: 09/08/22 Hospital course: Patient is a very pleasant 62-year-old female with a past medical history of hypertension. She was transferred to our facility from [facility] secondary to CT findings of acute diverticulitis. Patient reported she initially presented to [facility] secondary to reports of left lower quadrant abdominal pain and suprapubic abdominal discomfort lasting for approximately 1 week and worsening today. She denied any episodes of nausea, vomiting, or diarrhea. Upon arrival to our facility patient underwent further evaluation. Vital signs reviewed and stable with blood pressure 146/99, heart rate 102, respiratory rate 20, SpO2 96% on room air and temperature 97.8F. Labs completed and reviewed. CBC consistent with leukocytosis with WBC count of 13.0. BMP showing an acute kidney injury with BUN 26, creatinine 1.38, and GFR of 41 along with hyperglycemia with glucose of 203. Lactate 0.8. Liver profile showing elevated AST of 38. CRP elevated at 3.5 and troponin of less than 0.012. Urinalysis positive for glucose, ketones, and 25 RBCs negative for infection. EKG completed showing normal sinus rhythm and 99 bpm with left ventricular hypertrophy and T-wave inversion in inferior leads III, and aVF upon personal review and interpretation. Patient was admitted under services for acute diverticulitis and started on IV antibiotics with Zosyn. General surgery has been consulted. Physical exam: Patient seen and fully evaluated at bedside this morning. Patient reports improvement of epigastric pain currently rating 3 out of 10 at this time. She does report having a small bowel movement this morning. Continues to deny any episodes of melena or hematochezia. Patient tolerating clear liquid diet with no reports of nausea or vomiting. General: Nontoxic, no distress and appears stated age. Derm: Skin warm and dry, normal coloration for ethnicity. Head: Atraumatic, normocephalic and symmetric. Chronic lump on scalp Eyes: EOMs intact, no lid lag, and anicteric sclera Mouth: no lip lesions, mucus membranes moist Cardiovascular: regular rate and rhythm with normal S1S2, no murmur, positive posterior tibial pulses bilaterally, and cap refill < 2 seconds. Lungs: Respirations even, regular, and unlabored on room air. Lungs CTA bilaterally, no rhonchi, no rales, no wheezing, and no accessory muscle usage. GI/: soft, epigastric tenderness upon palpation, no guarding, no appreciable organomegaly. Longo catheter in place. Ext: ROM intact. No gross muscle atrophy, no edema, no contractures Neuro: Speech clear, face symmetrical and CN II-XII grossly intact with no noted focal neuro deficits Psych: Alert and oriented to person, place, time, and situation. Appropriate and pleasant affect. Assessment and Plan of Care: Acute diverticulitis Sepsis secondary to above Leukocytosis, secondary to above -Gen. surgery following, discussed plan of care with general surgery PA recommending continuation of conservative medical management with IV antibiotics and increasing diet to full liquids at this time. -IV antibiotics with Zosyn 3.375 g every 8 hours. -Symptomatic care and pain management. -GI prophylaxis with Protonix 40 mg IVP daily. Hypertensive urgency EKG findings of left ventricular hypertrophy -Patient reports long-standing history of hypertension previously on medication no longer taking secondary to loss of insurance and inability to afford prescriptions. -Blood pressure again elevated this morning at 187/105 with heart rate 91. Patient was started on amlodipine 10 mg daily in addition to metoprolol 25 mg twice a day we will increase metoprolol to 50 mg twice daily and continue to monitor closely. -Echocardiogram was completed and currently awaiting results at this time. Hyperglycemia -Hemoglobin A1c 6%. -Patient placed on glycemic protocol with NovoLog sliding scale to maintain tight glycemic control throughout hospitalization. -Patient may benefit from being started on Glucophage 500 mg twice a day upon discharge and encouraged to make dietary and lifestyle changes for goal hemog lobin A1c less than 6%. Urinary retention Acute kidney injury, possible underlying chronic kidney disease -Longo catheter placed at [facility] secondary to reports of urinary retention. -Urinalysis positive for glucose, ketones, and 25 RBCs negative for infection. -Consult placed to urology -Renal and bladder ultrasound reviewed and per radiology report negative for acute process. -BMP shows stable but continued elevation of renal function with BUN of 25, creatinine 1.33, and GFR 43 Data reviewed: -Morning labs reviewed. CBC showing mild leukocytosis with WBC count of 13.72.. BMP showing mild hyponatremia with sodium 131 and stable but slightly elevated renal function with BUN of 25, creatinine 1.33, GFR 43. It is unclear what patient's baseline renal function is suspect underlying chronic kidney disease. Imaging reviewed -Echocardiogram was completed and currently pending results. -Renal and bladder ultrasound was completed in radiology report reviewed negative for acute process. CODE STATUS: Full code DVT prophylaxis: Heparin Discussed with: Patient, Gen. surgery PA, and RN Anticipated discharge date: Clinical course to determine Anticipated discharge place: Home Patient was seen independently by Nurse Pracitioner. This document was prepared using [employer] dictation software. Please allow for errors in pediatric physical therapy assistant, while rare they do occur. I reviewed the documentation as provided by the CHRISTY above, who is the original author of this note. I agree with the documented assessment and plan, with the following changes: none Objective - Vital Signs Vital signs: Vital Signs Temp 99.4 F 09/08/22 07:29 Pulse 91 09/08/22 07:29 Resp 16 09/08/22 07:29 BP 187/105 09/08/22 07:29 Pulse Ox 94 L 09/08/22 07:29 FiO2 Intake & Output 09/07/22 09/08/22 09/08/22 18:59 06:59 18:59 Intake Total 240 Output Total 500 Balance 240 -500 Intake: Oral 240 Output: Urine 500 Other: # Voids 1 2 - Labs CBC & Chem 7: 09/09/22 05:53 09/09/22 05:53 Labs: Abnormal Lab Results - Last 24 Hours (Table) 09/07/22 09/07/22 09/07/22 Range/Units 10:01 12:01 17:11 WBC 11.3 H (3.8-10.6) k/uL Neutrophils # 9.5 H (1.3-7.7) k/uL Lymphocytes # 0.9 L (1.0-4.8) k/uL Sodium (137-145) mmol/L BUN (7-17) mg/dL Creatinine (0.52-1.04) mg/dL Glucose (74-99) mg/dL POC Glucose (mg/dL) 138 H 131 H (70-110) mg/dL AST (14-36) U/L ALT (4-34) U/L 09/07/22 09/08/22 09/08/22 Range/Units 20:27 05:27 06:22 WBC (3.8-10.6) k/uL Neutrophils # (1.3-7.7) k/uL Lymphocytes # (1.0-4.8) k/uL Sodium 131 L (137-145) mmol/L BUN 25 H (7-17) mg/dL Creatinine 1.33 H (0.52-1.04) mg/dL Glucose 138 H (74-99) mg/dL POC Glucose (mg/dL) 180 H 136 H (70-110) mg/dL AST 39 H (14-36) U/L ALT 43 H (4-34) U/L
--- NOTE | 2022-09-08 14:49 | P.GSCN ---
History of Present Illness Consult date: 09/08/22 Reason for Consult: Urinary retention History of present illness: This is a 62-year-old female that presented to the hospital as a transfer from [facility] with acute diverticulitis. Urology is consulted for urinary retention. Patient had a Longo catheter placed at [facility] as an outpatient is unsure why but possibly for retention, her postvoid residual is unknown. She indicated she was able to void but was having urinary frequency. No previous history of retention. At baseline she does not have any obstructive urinary symptoms does have overactive bladder symptoms. No history of recurrent UTIs or kidney stones. She is having significant amount of spasms from the Longo catheter. Past Medical History Past Medical History: Hypertension History of Any Multi-Drug Resistant Organisms: None Reported Past Surgical History: Tubal Ligation Smoking Status: Never smoker Past Alcohol Use History: None Reported Past Drug Use History: None Reported Medications and Allergies Home Medications Medication Instructions Recorded Confirmed Type No Known Home Medications 09/07/22 09/07/22 History Allergies Allergy/AdvReac Type Severity Reaction Status Date / Time No Known Allergies Allergy Verified 09/07/22 07:33 Surgical - Exam Vital Signs Temp Pulse Resp BP Pulse Ox 97.8 F 102 H 20 146/99 96 09/06/22 21:30 09/06/22 21:30 09/06/22 21:30 09/06/22 21:30 09/06/22 21:30 - General no distress, no pain - Eyes normal ocular movement, no pale - ENT normal nares, normal mucosa - Respiratory normal expansion, normal respiratory effort - Abdomen Abdomen: soft, non tender - Psychiatric oriented to time, oriented to person, oriented to place Results - Labs 09/08/22 05:27 09/08/22 05:27 Abnormal Lab Results - Last 24 Hours (Table) 09/07/22 09/07/22 09/08/22 Range/Units 17:11 20:27 05:27 WBC (4.50-10.00) X 10*3/uL MCHC (32.0-37.0) d/dL Neutrophils # (1.80-7.70) X 10*3/uL Monocytes # (0.20-1.00) X 10*3/uL Sodium 131 L (137-145) mmol/L BUN 25 H (7-17) mg/dL Creatinine 1.33 H (0.52-1.04) mg/dL Glucose 138 H (74-99) mg/dL POC Glucose (mg/dL) 131 H 180 H (70-110) mg/dL AST 39 H (14-36) U/L ALT 43 H (4-34) U/L 09/08/22 09/08/22 09/08/22 Range/Units 05: 06:22 12:20 WBC 13.72 H (4.50-10.00) X 10*3/uL MCHC 31.0 L (32.0-37.0) d/dL Neutrophils # 11.33 H (1.80-7.70) X 10*3/uL Monocytes # 1.27 H (0.20-1.00) X 10*3/uL Sodium (137-145) mmol/L BUN (7-17) mg/dL Creatinine (0.52-1.04) mg/dL Glucose (74-99) mg/dL POC Glucose (mg/dL) 136 H 120 H (70-110) mg/dL AST (14-36) U/L ALT (4-34) U/L Diabetes panel 09/08/22 Range/Units 05:27 Sodium 131 L (137-145) mmol/L Potassium 4.2 (3.5-5.1) mmol/L Chloride 98 (98-107) mmol/L Carbon Dioxide 26 (22-30) mmol/L BUN 25 H (7-17) mg/dL Creatinine 1.33 H (0.52-1.04) mg/dL Glucose 138 H (74-99) mg/dL Calcium 8.6 (8.4-10.2) mg/dL AST 39 H (14-36) U/L ALT 43 H (4-34) U/L Alkaline Phosphatase 107 (38-126) U/L Total Protein 6.8 (6.3-8.2) g/dL Albumin 3.6 (3.5-5.0) g/dL Calcium panel 09/08/22 Range/Units 05:27 Calcium 8.6 (8.4-10.2) mg/dL Albumin 3.6 (3.5-5.0) g/dL Pituitary panel 09/08/22 Range/Units 05:27 Sodium 131 L (137-145) mmol/L Potassium 4.2 (3.5-5.1) mmol/L Chloride 98 (98-107) mmol/L Carbon Dioxide 26 (22-30) mmol/L BUN 25 H (7-17) mg/dL Creatinine 1.33 H (0.52-1.04) mg/dL Glucose 138 H (74-99) mg/dL Calcium 8.6 (8.4-10.2) mg/dL Adrenal panel 09/08/22 Range/Units 05:27 Sodium 131 L (137-145) mmol/L Potassium 4.2 (3.5-5.1) mmol/L Chloride 98 (98-107) mmol/L Carbon Dioxide 26 (22-30) mmol/L BUN 25 H (7-17) mg/dL Creatinine 1.33 H (0.52-1.04) mg/dL Glucose 138 H (74-99) mg/dL Calcium 8.6 (8.4-10.2) mg/dL Total Bilirubin 1.3 (0.2-1.3) mg/dL AST 39 H (14-36) U/L ALT 43 H (4-34) U/L Alkaline Phosphatase 107 (38-126) U/L Total Protein 6.8 (6.3-8.2) g/dL Albumin 3.6 (3.5-5.0) g/dL Assessment and Plan Assessment: 62-year-old female with acute diverticulitis, urology is consulted for urinary retention, post void residual is unknown but it appears that patient catheter was placed for for urinary frequency rather than retention. She is symptomatic from her Longo catheter -Given the exact reason the catheter was placed is unknown and patient having discomfort secondary to the catheter recommend removing the catheter, if her postvoid residuals greater than 400 recommend reinserting catheter, but if less than 400 and the catheter can stay out
[2022-09-08 17:19] LABS: Glucose,Whole Blood 111 mg/dL (70-110)
[2022-09-08 20:26] LABS: Glucose,Whole Blood 133 mg/dL (70-110)
[2022-09-08] MEDS: METOPROLOL TARTRATE 50 MG TAB PO SCH (20:29)
[2022-09-09] MEDS: HEPARIN SODIUM,PORCINE/PF 5,000 UNIT/0.5 ML SYRINGE SQ SCH ×3 (00:19→16:00)
[2022-09-09] MEDS ORDERED: cloNIDine HCL 0.2 MG TAB PO STA (01:04)
[2022-09-09] MEDS: PIPERACILLIN-TAZOBACTAM 3.375 GM in SODIUM CHLORIDE 0.9% 100 ML IVPB SCH ×2 (03:03→12:13)
[2022-09-09 06:10] LABS: Glucose,Whole Blood 128 mg/dL (70-110)
[2022-09-09] MEDS: INSULIN ASPART (NovoLOG) 100 UNIT/ML VIAL SQ SCH ×2 (06:15→12:30)
[2022-09-09] MEDS: PANTOPRAZOLE 40 MG/10 ML VIAL IV SCH (07:49)
[2022-09-09] MEDS: amLODIPine 10 MG TAB PO SCH (07:49)
[2022-09-09] MEDS: METOPROLOL TARTRATE 50 MG TAB PO SCH (07:49)
[2022-09-09 08:46] LABS: ALT 22 U/L (8-44); AST 9 U/L (13-35); Albumin 3.4 d/dL (3.8-4.9); Albumin/Globulin Ratio 1.31 Ratio (1.60-3.17); Alkaline Phosphatase 95 U/L (41-126); BUN/Creat Ratio 14.64 Ratio (12.00-20.00); Blood Urea Nitrogen 20.5 mg/dL (9.0-27.0); Calcium 8.6 mg/dL (8.7-10.3); Carbon Dioxide 26.3 mmol/L (21.6-31.8); Chloride 98 mmol/L (96-109); Globulin 2.6 d/dL (1.6-3.3); Glucose 127 mg/dL (70-110); Potassium 3.8 mmol/L (3.5-5.5); Sodium 137 mmol/L (135-145); Total Bilirubin 0.8 mg/dL (0.3-1.2)
[2022-09-09 08:49] LABS: Basophils # (A) 0.03 X 10*3/uL (0.00-0.10); Basophils % (A) 0.3 %; Eosinophils # (A) 0.28 X 10*3/uL (0.04-0.35); Eosinophils % (A) 2.7 %; HCT 37.5 % (37.2-46.3); HGB 12.5 d/dL (12.0-15.0); Lymphocytes # (A) 1.19 X 10*3/uL (0.90-5.00); Lymphocytes % (A) 11.4 %; MCH 28.9 pg (27.0-32.0); MCHC 33.3 d/dL (32.0-37.0); MCV 86.6 FL (80.0-97.0); Mean Platelet Volume 11.1 FL (9.5-12.2); Monocytes % (A) 10.5 %; NRBC Per 100 WBC 0 X 10*3/uL (0.00-0.01); Neutrophils # (A) 7.83 X 10*3/uL (1.80-7.70); Neutrophils % (A) 74.7 %; Platelet Count 212 X 10*3/uL (140-440); RBC 4.33 X 10*6/uL (4.10-5.20); RDW 12.6 % (11.5-14.5); WBC 10.47 X 10*3/uL (4.50-10.00)
--- NOTE | 2022-09-09 10:25 | CA ---
Transthoracic Echo Report Name: Karen Quesada Age: 62 Gender: F : 1960 Exam Date: 09/08/2022 07:52 Exam Location: [place] [facility] Ht (in): 66 Wt (lb): 180 Ordering Physician: Benjamin Ramos Attending/Referring Phys: Lithographers Printer Misti Martinez [facility] Procedure CPT: Indications: Evaluate structure and function Cardiac Hx: Technical Quality: Fair Contrast 1: Total Dose (mL): Contrast 2: Total Dose (mL): MEASUREMENTS (Male / Female) Normal Values 2D ECHO LV Diastolic Diameter PLAX 4.9 cm 4.2 - 5.9 / 3.9 - 5.3 cm LV Systolic Diameter PLAX 3.6 cm IVS Diastolic Thickness 1.3 cm 0.6 - 1.0 / 0.6 - 0.9 cm LVPW Diastolic Thickness 1.4 cm 0.6 - 1.0 / 0.6 - 0.9 cm LV Relative Wall Thickness 0.6 Ascending Aorta Diameter 3.8 cm M-MODE Aortic Root Diameter MM 3.2 cm LA Systolic Diameter MM 3.9 cm LA Ao Ratio MM 1.2 AV Cusp Separation MM 2.0 cm DOPPLER AV Peak Velocity 167.4 cm/s AV Peak Gradient 11.2 mmHg AV Mean Velocity 128.4 cm/s AV Mean Gradient 7.0 mmHg AV Velocity Time Integral 24.9 cm LVOT Peak Velocity 126.0 cm/s LVOT Peak Gradient 6.4 mmHg LVOT Velocity Time Integral 17.3 cm Mitral E Point Velocity 37.4 cm/s Mitral A Point Velocity 91.6 cm/s Mitral E to A Ratio 0.4 MV Deceleration Time 214.2 ms LV E' Lateral Velocity 6.1 cm/s Mitral E to LV E' Lateral Ratio 6.1 LV E' Septal Velocity 4.8 cm/s Mitral E to LV E' Septal Ratio 7.7 TR Peak Velocity 162.9 cm/s TR Peak Gradient 10.6 mmHg Right Atrial Pressure 3.0 mmHg Pulmonary Artery Systolic Pressu 13.6 mmHg Right Ventricular Systolic Press 15.6 mmHg FINDINGS Left Ventricle Moderately increased left ventricular wall thickness. Left ventricular ejection fraction is estimated at 50%. Left ventricular cavity size at the upper limits of normal. Moderate concentric left ventricular hypertrophy. Right Ventricle Normal right ventricular size and function. Right Atrium Normal right atrial size. Left Atrium Moderate left atrial dilatation. Mitral Valve Structurally normal mitral valve. Trace mitral regurgitation. Aortic Valve Trileaflet aortic valve. Trace aortic regurgitation. No aortic stenosis. Tricuspid Valve Structurally normal tricuspid valve. Trace tricuspid regurgitation. Pulmonic Valve Structurally normal pulmonic valve. No pulmonic regurgitation. Pericardium No pericardial effusion. Aorta Normal size aortic root. Mildly dilated proximal ascending aorta (tube). CONCLUSIONS Left ventricle is at upper limits of normal in size mild to moderate concentric LVH failure contractility with estimated ejection fraction of 50%. Left atrial enlargement. Mild mitral and tricuspid regurgitation. No pericardial effusion. No significant pulmonary hypertension Previewed by: Dr. Tani Garcia MD (Electronically Signed) Final Date: 09 September 2022 10:25
[2022-09-09 12:13] LABS: Glucose,Whole Blood 113 mg/dL (70-110)
--- NOTE | 2022-09-09 12:21 | P.PN ---
Subjective Progress Note Date: 09/09/22 no acute overnight events, patient is voiding without any issues. Denies any dysuria or gross hematuria Objective - Vital Signs Vital signs: Vital Signs Temp 98.2 F 09/09/22 07:00 Pulse 69 09/09/22 07:00 Resp 16 09/09/22 07:49 BP 153/74 09/09/22 07:00 Pulse Ox 95 09/09/22 07:00 FiO2 Intake & Output 09/08/22 09/09/22 09/09/22 18:59 06:59 18:59 Output Total 200 Balance -200 Output: Urine 200 Other: Voiding Method Toilet Toilet Toilet # Voids 200 2 # Bowel Movements 1 - Constitutional General appearance: Present: no acute distress - Psychiatric Psychiatric: Present: A&O x's 3 - Labs CBC & Chem 7: 09/09/22 05:53 09/09/22 05:53 Labs: Abnormal Lab Results - Last 24 Hours (Table) 09/08/22 09/08/22 09/08/22 Range/Units 12:20 17:17 20:24 WBC (4.50-10.00) X 10*3/uL Neutrophils # (1.80-7.70) X 10*3/uL Monocytes # (0.20-1.00) X 10*3/uL Anion Gap (4.00-12.00) mmol/L Est GFR (CKD-EPI) (>=60) Glucose (70-110) mg/dL POC Glucose (mg/dL) 120 H 111 H 133 H (70-110) mg/dL Calcium (8.7-10.3) mg/dL AST (13-35) U/L Total Protein (6.2-8.2) d/dL Albumin (3.8-4.9) d/dL Albumin/Globulin Ratio (1.60-3.17) Ratio 09/09/22 09/09/22 09/09/22 Range/Units 05:53 05:53 06:09 WBC 10.47 H (4.50-10.00) X 10*3/uL Neutrophils # 7.83 H (1.80-7.70) X 10*3/uL Monocytes # 1.10 H (0.20-1.00) X 10*3/uL Anion Gap 12.70 H (4.00-12.00) mmol/L Est GFR (CKD-EPI) 43 L (>=60) Glucose 127 H (70-110) mg/dL POC Glucose (mg/dL) 128 H (70-110) mg/dL Calcium 8.6 L (8.7-10.3) mg/dL AST 9 L (13-35) U/L Total Protein 6.0 L (6.2-8.2) d/dL Albumin 3.4 L (3.8-4.9) d/dL Albumin/Globulin Ratio 1.31 L (1.60-3.17) Ratio 09/09/22 Range/Units 12:11 WBC (4.50-10.00) X 10*3/uL Neutrophils # (1.80-7.70) X 10*3/uL Monocytes # (0.20-1.00) X 10*3/uL Anion Gap (4.00-12.00) mmol/L Est GFR (CKD-EPI) (>=60) Glucose (70-110) mg/dL POC Glucose (mg/dL) 113 H (70-110) mg/dL Calcium (8.7-10.3) mg/dL AST (13-35) U/L Total Protein (6.2-8.2) d/dL Albumin (3.8-4.9) d/dL Albumin/Globulin Ratio (1.60-3.17) Ratio Assessment and Plan Assessment: 62-year-old female with acute diverticulitis, urology is consulted for urinary retention,rodriguez removed yesterday patient is voiding without any issues, -obtain a PVR to assess patient is voiding to completion, if PVR is less than 300 mL then patient can be discharged from urology standpoint
[2022-09-09 14:05] VITALS: BP 173/82; PULSE 77; TEMP 98.7
--- NOTE | 2022-09-09 15:48 | P.DS ---
Providers Date of admission: 09/06/22 23:26 Expected date of discharge: 09/09/22 Attending physician: Parag Estrella MD Consults: 09/06/22 23:26 Consult Physician Routine Consulting Provider: Ally Wilks Consult Reason/Comments: diverticulitis Do you want consulting provider notified?: Already Contacted 09/07/22 17:04 Consult Physician Routine Consulting Provider: Vince Salomon Consult Reason/Comments: urinary retention Do you want consulting provider notified?: Yes Primary care physician: Stated None Hospital Course: Discharge Diagnosis: Acute diverticulitis. Patient received 3 day course of Zosyn and being discharged home on an additional 10 days of Augmentin 875/125 mg tablets twice daily to total a treatment course of 10 days of antibiotic therapy. Patient to follow up outpatient with general surgery in one week for follow-up. Sepsis secondary to above. Leukocytosis, secondary to above. Improved. Hypertensive urgency. Patient discharged home on metoprolol 50 mg twice daily and Norvasc 10 mg daily. EKG findings of left ventricular hypertrophy. Echocardiogram was completed revealing EF of 50% with mild mitral and tricuspid regurgitation. Hyperglycemia. Hemoglobin A1c 6%. Patient may benefit from being started on Glucophage 500 mg twice daily but opting to make dietary and lifestyle changes and to have repeat hemoglobin A1c in 3 months to monitor for improvement. Urinary retention, resolved. Acute kidney injury, possible underlying chronic kidney disease. Resolved. Hospital Course: Patient is a very pleasant 62-year-old female with a past medical history of hypertension. She was transferred to our facility from [facility] sec ondary to CT findings of acute diverticulitis. Patient reported she initially presented to [facility] secondary to reports of left lower quadrant abdominal pain and suprapubic abdominal discomfort lasting for approximately 1 week and worsening today. She denied any episodes of nausea, vomiting, or diarrhea. Upon arrival to our facility patient underwent further evaluation. Vital signs reviewed and stable with blood pressure 146/99, heart rate 102, respiratory rate 20, SpO2 96% on room air and temperature 97.8F. Labs completed and reviewed. CBC consistent with leukocytosis with WBC count of 13.0. BMP showing an acute kidney injury with BUN 26, creatinine 1.38, and GFR of 41 along with hyperglycemia with glucose of 203. Lactate 0.8. Liver profile showing elevated AST of 38. CRP elevated at 3.5 and troponin of less than 0.012. Urinalysis positive for glucose, ketones, and 25 RBCs negative for infection. EKG completed showing normal sinus rhythm and 99 bpm with left ve ntricular hypertrophy and T-wave inversion in inferior leads III, and aVF upon personal review and interpretation. Patient was admitted under services for acute diverticulitis and started on IV antibiotics with Zosyn. General surgery and urology has been consulted. Urology evaluated, Longo catheter was removed and urinary retention has resolved. General surgery followed closely and patient's diet was slowly advanced. Patient tolerating a low fiber diet with no further episodes of nausea or vomiting and is having normal bowel function at this time. Patient reports significant improvement in pain/discomfort. Patient received 3 day course of Zosyn and being discharged home on an additional 10 days of Augmentin 875/125 mg tablets twice daily to total a treatment course of 10 days of antibiotic therapy. Patient to follow up outpatient with general surgery and PCP in one week for follow-up. Physical exam: General: Nontoxic, no distress and appears stated age. Derm: Skin warm and dry, normal coloration for ethnicity. Head: Atraumatic, normocephalic and symmetric. Chronic lump on scalp Eyes: EOMs intact, no lid lag, and anicteric sclera Mouth: no lip lesions, mucus membranes moist Cardiovascular: regular rate and rhythm with normal S1S2, no murmur, positive posterior tibial pulses bilaterally, and cap refill < 2 seconds. Lungs: Respirations even, regular, and unlabored on room air. Lungs CTA bilaterally, no rhonchi, no rales, no wheezing, and no accessory muscle usage. GI/: soft, no tenderness upon palpation, no guarding, no appreciable organomegaly. Longo catheter in place. Ext: ROM intact. No gross muscle atrophy, no edema, no contractures Neuro: Speech clear, face symmetrical and CN II-XII grossly intact with no noted focal neuro deficits Psych: Alert and oriented to person, place, time, and situation. Appropriate and pleasant affect. A total of 33minutes of time were spent preparing this complex discharge summary. Pt was discharged on 09/09/22 at 3:44 PM. Patient was seen independently by Nurse Practitioner. This document was prepared using [employer] dictation software. Please allow for errors in defence force member other ranks while rare they do occur. I reviewed the documentation as provided by the CHRISTY above, who is the original author of this note. I agree with the documented assessment and plan, with the following changes: none Patient Condition at Discharge: Stable Plan - Discharge Summary Discharge Rx Participant: No New Discharge Prescriptions: New Amoxic-Pot Clav 875-125Mg [Augmentin 875-125] 1 tab PO Q12HR 7 Days #14 tab Metoprolol Tartrate [Lopressor] 50 mg PO BID 60 Days #120 tab amLODIPine [Norvasc] 10 mg PO DAILY 60 Days #60 tab Discharge Medication List Amoxic-Pot Clav 875-125Mg [Augmentin 875-125] 1 tab PO Q12HR 7 Days #14 tab 09/09/22 [Rx] Metoprolol Tartrate [Lopressor] 50 mg PO BID 60 Days #120 tab 09/09/22 [Rx] amLODIPine [Norvasc] 10 mg PO DAILY 60 Days #60 tab 09/09/22 [Rx] Follow up Appointment(s)/Referral(s): Brice Cortes MD [REFERRING] - 1 Week Ally Wilks MD [STAFF PHYSICIAN] - 1 Week (voicemail left for the office to call the patient with appointment ) Patient Instructions/Handouts: Diverticulitis (DC), Hypertension (DC) Activity/Diet/Wound Care/Special Instructions: Activity: As tolerated. Take breaks as needed. Diet: Heart healthy and low fiber diet Special Instructions: Take all of your medications as directed and remember to keep all of your doctor's appointments and follow-up as needed. Thank you for allowing us to participate in your care, it was truly a pleasure having you for our patient!!! Discharge Disposition: HOME SELF-CARE
--- NOTE | 2022-09-09 16:02 | P.PN ---
Subjective Progress Note Date: 09/09/22 CHIEF COMPLAINT: Acute diverticulitis HISTORY OF PRESENT ILLNESS: Patient reports her pain has improved. She rates her pain at a 0. She denies any nausea or vomiting. She is having bowel movements. She is tolerating a full liquid diet. Afebrile. WBC is down from 13.72-10.47 LFTs improved BP 173/82 PHYSICAL EXAM: VITAL SIGNS: Reviewed GENERAL: Well-developed in no acute distress. HEENT: No sclera icterus. Extraocular movements grossly intact. Moist buccal mucosa. Head is atraumatic, normocephalic. Hears conversational speech. No nasal drainage. NECK: Supple without lymphadenopathy. CHEST: Non-labored respirations and equal bilateral excursions. CARDIOVASCULAR: Palpable 2+ radial pulses. ABDOMEN: Soft. Nondistended. Nontender. MUSCULOSKELETAL: No clubbing or cyanosis. NEUROLOGIC: No focal or lateralizing signs. Cranial nerves II through XII grossly intact. PSYCH: Appropriate affect. Alert and oriented to person, place and time. SKIN: Well perfused. Good skin turgor. ASSESSMENT: 1. Acute uncomplicated diverticulitis 2. Gallbladder wall thickening with cholelithiasis noted on computed tomography scan. Patient denies any right upper quadrant abdominal pain 3. Hypertension with uncontrolled blood pressure 4. Mildly elevated LFTs resolved PLAN: -Advance diet to low fiber -If patient tolerates diet okay for discharge from surgical standpoint -Continue antibiotics at discharge Physician Emergency Veterinary Assistant note has been reviewed by physician. Signing provider agrees with the documented findings, assessment, and plan of care. Objective - Vital Signs Vital signs: Vital Signs Temp 98.2 F 09/09/22 07:00 Pulse 69 09/09/22 07:00 Resp 16 09/09/22 07:49 BP 153/74 09/09/22 07:00 Pulse Ox 95 09/09/22 07:00 FiO2 Intake & Output 09/08/22 09/09/22 09/09/22 18:59 06:59 18:59 Output Total 200 Balance -200 Output: Urine 200 Other: Voiding Method Toilet Toilet Toilet # Voids 200 2 # Bowel Movements 1 - Labs CBC & Chem 7: 09/09/22 05:53 09/09/22 05:53 Labs: Abnormal Lab Results - Last 24 Hours (Table) 09/08/22 09/08/22 09/09/22 Range/Units 17:17 20:24 05:53 WBC 10.47 H (4.50-10.00) X 10*3/uL Neutrophils # 7.83 H (1.80-7.70) X 10*3/uL Monocytes # 1.10 H (0.20-1.00) X 10*3/uL Anion Gap (4.00-12.00) mmol/L Est GFR (CKD-EPI) (>=60) Glucose (70-110) mg/dL POC Glucose (mg/dL) 111 H 133 H (70-110) mg/dL Calcium (8.7-10.3) mg/dL AST (13-35) U/L Total Protein (6.2-8.2) d/dL Albumin (3.8-4.9) d/dL Albumin/Globulin Ratio (1.60-3.17) Ratio 09/09/22 09/09/22 09/09/22 Range/Units 05:53 06:09 12:11 WBC (4.50-10.00) X 10*3/uL Neutrophils # (1.80-7.70) X 10*3/uL Monocytes # (0.20-1.00) X 10*3/uL Anion Gap 12.70 H (4.00-12.00) mmol/L Est GFR (CKD-EPI) 43 L (>=60) Glucose 127 H (70-110) mg/dL POC Glucose (mg/dL) 128 H 113 H (70-110) mg/dL Calcium 8.6 L (8.7-10.3) mg/dL AST 9 L (13-35) U/L Total Protein 6.0 L (6.2-8.2) d/dL Albumin 3.4 L (3.8-4.9) d/dL Albumin/Globulin Ratio 1.31 L (1.60-3.17) Ratio
== END 2022-09-09 17:20 | disposition home or self-care (01) | DRG 872 ==
LOC: EC 21:21 → 6NMEDSUR 23:26
PROVIDERS: ADMIT Internal Medicine; ATTEND Internal Medicine
DX: A41.9 Sepsis, unspecified organism (principal); N17.9 Acute kidney failure, unspecified; K57.32 Diverticulitis of large intestine without perforation or abscess without bleeding; I11.9 Hypertensive heart disease without heart failure; K80.20 Calculus of gallbladder without cholecystitis without obstruction; I16.0 Hypertensive urgency; R73.9 Hyperglycemia, unspecified; R33.9 Retention of urine, unspecified; R35.0 Frequency of micturition; R22.0 Localized swelling, mass and lump, head; R65.20 Severe sepsis without septic shock; R74.01 Elevation of levels of liver transaminase levels; Z28.310 Unvaccinated for COVID-19
CPT/HCPCS: 36415; 76770; 80053; 81001; 83036; 83605; 83735; 84484; 85025; 86140; 93005; 93306; 96360; 99285